=== PATIENT | female | born 1980 | race Caucasian/White ===

== ENCOUNTER → 2018-11-20 | Outpatient (CLI) | payer BC ==
--- NOTE | 2018-11-20 11:42 | REP ---
THORACOLUMBAR SPINE, TWO VIEWS: HISTORY: Back pain. The thoracolumbar spine is visualized from T9 to the L2-3 level. There is no acute fracture or subluxation. The intervertebral discs are normal in height. Anterior osteophytes are present on T10 through T12. IMPRESSION: Degenerative change, as described above. Electronically Signed by Carter Stark MD 11/20/2018 11:50 A
--- NOTE | 2018-11-20 12:15 | REP ---
BILATERAL HAND SERIES: EIGHT VIEWS. HISTORY: Arthritis. FINDINGS: Four views of the right hand show overall normal mineralization. Bones, joints, and soft tissues are unremarkable. No erosive changes seen. Four views of the left hand show normal bones, joints, and soft tissues as well. IMPRESSION: Negative radiographs of the hands bilaterally. Electronically Signed by Kiran Reed MD 11/20/2018 12:35 P
--- NOTE | 2018-11-20 12:21 | REP ---
SI JOINT SERIES: BILATERAL. FOUR VIEWS. HISTORY: Arthritis. FINDINGS: There is a surgical clip in the central pelvis. Sacroiliac joints show no evidence of ankylosis or erosive change. No bony destructive or sclerotic lesion is seen. IMPRESSION: Negative SI joint views. Electronically Signed by Kiran Reed MD 11/20/2018 12:36 P
--- NOTE | 2018-11-20 12:25 | REP ---
LIMITED C-SPINE: THREE VIEWS. HISTORY: Pain. Arthritis. COMPARISON STUDY: December 28, 2005 FINDINGS: Lateral and swimmer's lateral view shows straightening. Cervical vertebral body heights are preserved. Disc spaces are maintained. Alignment is normal. Retropharyngeal soft tissues are not swollen. AP view shows no abnormality. IMPRESSION: Straightening. Otherwise negative limited C-spine radiographs. Electronically Signed by Kiran Reed MD 11/20/2018 12:37 P
--- NOTE | 2018-11-20 12:26 | REP ---
BILATERAL FOOT SERIES: EIGHT VIEWS. HISTORY: Pain. FINDINGS: Four views of the left foot demonstrate overall normal mineralization. There is a fairly large plantar calcaneal spur. Joint spaces are preserved. No erosive changes are seen. Soft tissues are unremarkable. Four views of the right foot demonstrate overall normal mineralization. No erosive changes seen. Joint spaces are preserved. There is fragmented spurring at the plantar fascia insertion site on the calcaneus on the right. This is more prominent than the left. IMPRESSION: Bilateral plantar calcaneal spurring, right greater than left. Otherwise negative. Electronically Signed by Kiran Reed MD 11/20/2018 12:38 P
== END ==
LOC: M LAB 10:32
PROVIDERS: ATTEND Internal Medicine Rheumatology
DX: M77.31 Calcaneal spur, right foot (principal); M77.32 Calcaneal spur, left foot; M25.78 Osteophyte, vertebrae; M54.2 Cervicalgia; M19.90 Unspecified osteoarthritis, unspecified site